=== PATIENT | female | born 2000 | race Two or more races ===

== ENCOUNTER 2024-04-12 22:32 | Emergency (ER) | payer OTHER ==
[2024-04-12 22:36] VITALS: BP 126/71; TEMP 97.7; BMI 24.5
[2024-04-13] MEDS ORDERED: ACETAMINOPHEN 500 MG TABLET (FP) ONE (00:38)
[2024-04-13] MEDS: ACETAMINOPHEN 500 MG TABLET (FP) PO ONE (00:39)
[2024-04-13] MEDS: ACETAMINOPHEN 1000 MG/100 ML BAG IVPB ONE (00:42)
[2024-04-13 01:04] VITALS: PULSE 84; RESP 16
== END 2024-04-13 01:13 | disposition home or self-care (01) ==
LOC: JER 22:32
DX: M94.0 Chondrocostal junction syndrome [Tietze] (principal); R07.9 Chest pain, unspecified
CPT/HCPCS: 71046-TC-FY; 93005; 93010; 99284-25